=== PATIENT | male | born 1970 | race Caucasian/White ===

== ENCOUNTER 2020-03-20 08:00 | Inpatient (IN) | payer OTHER ==
[~2020-03-20 08:00] MED LIST: Famotidine 20 MG/2 ML SDV IVPUSH SCH; Lactated Ringers 1,000 ML IV SCH; Ropivacaine 49.25 ML, Ketorolac 30 MG, EPINEPHrine 0.5 MG, cloNIDine 80 MCG in Sodium C... INJECT SCH; Scopolamine 1.5 MG Transdermal Patch TRDERM SCH; Tranexamic Acid 1,000 MG in Sodium Chloride 0.9% 100 ML IV ONE; ceFAZolin 2 GM in Premix Bag 1 BAG IV ONE
[2020-03-20] MEDS ORDERED: Acetaminophen 1,000 MG in Premix Bag 1 BAG IV PRN (08:27)
[2020-03-20] MEDS ORDERED: fentaNYL 100 MCG/2 ML SDV IVPUSH PRN (08:27)
[2020-03-20] MEDS ORDERED: Scopolamine 1.5 MG Transdermal Patch ONE (08:40)
[2020-03-20] MEDS ORDERED: Bupivacaine 0.5% 10 ML SDV ONE (08:42)
--- NOTE | 2020-03-20 09:09 | PCM.PREANE ---
Preanesthetic Assessment - Anesthesia/Transfusion/Family Hx Anesthesia History: Prior Anesthesia Without Reaction (hx of colonoscopy, no other anesthetics) Family History of Anesthesia Reaction: No Transfusion History: No Prior Transfusion(s) - Review of Systems General: No Symptoms Pulmonary: No Symptoms Cardiovascular: No Symptoms Gastrointestinal: No Symptoms Neurological: No Symptoms Other: Reports: None - Physical Assessment NPO Status Date: 03/19/20 Height: 5 ft 9 in Weight: 87.09 kg ASA Class: 2 Mental Status: Alert & Oriented x3 Airway Class: Mallampati = 2 Dentition: Reports: Normal Dentition ROM/Head Extension: Full Lungs: Clear to Auscultation, Normal Respiratory Effort Cardiovascular: Regular Rate, Regular Rhythm - Allergies Allergies/Adverse Reactions: Allergies Allergy/AdvReac Type Severity Reaction Status Date / Time No Known Allergies Allergy Verified 03/14/20 13:55 - Blood Blood Available: No - Anesthesia Plan Pre-Op Medication Ordered: None - Acknowledgements Anesthesia Type Planned: Spinal Pt an Appropriate Candidate for the Planned Anesthesia: Yes Alternatives and Risks of Anesthesia Discussed w Pt/Guardian: Yes Pt/Guardian Understands and Agrees with Anesthesia Plan: Yes Additional Comments: anes prob list: htn, last lisinopril 24 hr ago PLAN: spinal with sedation PreAnesthesia Questionnaire HEENT History: Reports: None Cardiovascular History: Reports: Hypertension Respiratory History: Reports: None Gastrointestinal History: Reports: Colon Polyp Genitourinary History: Reports: None Musculoskeletal History: Reports: Fracture, Osteoarthritis Other Musculoskeletal History: hx fx wrist Neurological History: Reports: None Psychiatric History: Reports: Anxiety Endocrine/Metabolic History: Reports: None Hematologic History: Reports: None Immunologic History: Reports: None Oncologic (Cancer) History: Reports: None Dermatologic History: Reports: None - Past Surgical History Head Surgeries/Procedures: Reports: None HEENT Surgical History: Reports: None Cardiovascular Surgical History: Reports: None Respiratory Surgical History: Reports: None GI Surgical History: Reports: Colonoscopy Male Surgical History: Reports: None Endocrine Surgical History: Reports: None Neurological Surgical History: Reports: None Musculoskeletal Surgical History: Reports: None Oncologic Surgical History: Reports: None Dermatological Surgical History: Reports: None - SUBSTANCE USE Tobacco Use Within Last Twelve Months: Other (See Below) Days Per Week of Alcohol Use: 7 Number of Drinks Per Day: 2 Total Drinks Per Week: 14 - HOME MEDS Home Medications: Home Meds Multivitamin [Multivitamins] 1 tab PO DAILY 03/14/20 [History] lisinopriL [Lisinopril] 20 mg PO DAILY 03/14/20 [History] - CURRENT (IN HOUSE) MEDS Current Meds: Current Medications Famotidine (Pepcid) 40 mg IVPUSH ONARRIVE CINDY Fentanyl (Sublimaze) 50 mcg IVPUSH Q5M PRN PRN Reason: Pain Ropivacaine 49.25 ml/Ketorolac Tromethamine 30 mg/Epinephrine HCl 0.5 mg/Clonidine HCl 80 mcg/ Sodium Chloride 75 mls @ 50 mls/sec INJECT ASDIRECTED [facility] Lactated Ringer's (Ringers, Lactated) 1,000 mls @ 100 mls/hr IV ASDIRECTED [facility] Last Admin: 03/20/20 08:40 Dose: 100 mls/hr Documented by: Acetaminophen 1,000 mg/ Premix 100 mls @ 400 mls/hr IV Q6H PRN PRN Reason: Pain Scopolamine (Transderm-Scop) 1.5 mg TRDERM ONARRIVE [facility] Last Admin: 03/20/20 08:50 Dose: 1.5 mg Documented by: Discontinued Medications Bupivacaine HCl (Sensorcaine-Mpf 0.5%) Confirm Administered Dose 10 ml .ROUTE .STK-MED ONE Stop: 03/20/20 08:43 Tranexamic Acid 1,000 mg/ (Sodium Chloride) 110 mls @ 600 mls/hr IV ASDIRECTED ONE Stop: 03/20/20 08:10 Cefazolin Sodium/Dextrose 2 gm (/ Premix) 50 mls @ 100 mls/hr IV ONCALL ONE Stop: 03/20/20 08:29 Scopolamine (Transderm-Scop) Confirm Administered Dose 1.5 mg .ROUTE .STK-MED ONE Stop: 03/20/20 08:41
[2020-03-20] MEDS ORDERED: Ondansetron 4 MG/2 ML SDV ONE (09:22)
[2020-03-20] MEDS ORDERED: Midazolam 1 MG/ML 2 ML SDV ONE (09:22)
[2020-03-20] MEDS ORDERED: Ketorolac 30 MG/ML SDV ONE (09:22)
[2020-03-20] MEDS ORDERED: fentaNYL 100 MCG/2 ML SDV ONE ×2 (09:22→12:15)
[2020-03-20] MEDS ORDERED: Glycopyrrolate 0.2 MG/ML SDV ONE (09:22)
[2020-03-20] MEDS ORDERED: Lidocaine 2% 5 ML SDV ONE (09:22)
[2020-03-20] MEDS ORDERED: Propofol 200 MG/20 ML SDV ONE (09:22)
[2020-03-20] MEDS ORDERED: Sodium Chloride 0.9% 20 ML ONE (09:36)
[2020-03-20] MEDS ORDERED: ceFAZolin 1 GM Vial ONE (09:36)
[2020-03-20] MEDS ORDERED: Phenylephrine 1% 10 MG/ML SDV ONE (09:40)
[2020-03-20] MEDS ORDERED: ePHEDrine 50 MG/ML SDV ONE (10:46)
--- NOTE | 2020-03-20 13:25 | PCM.OPNOTE ---
- General Post-Op/Procedure Note Date of Surgery/Procedure: 03/20/20 Operative Procedure(s): Right total hip arthroplasty with Gonzalez and nephew R3 acetabular cup, cross-link polyethylene liner, Synergy femoral stem, and Oxinium femoral head Findings: Right grade 4 hip osteoarthritis with complete loss of cartilage on the femoral head and acetabulum with bony eburnation Pre Op Diagnosis: Right grade 4 hip osteoarthritis Post-Op Diagnosis: Right grade 4 hip osteoarthritis Anesthesia Technique: General LMA, Spinal Primary Surgeon: Rodrick Ba Sccm Administrator: Allison Madsen Reason Sccm Administrator Was Necessary: Retraction and positioning Pathology: Femoral head to pathology EBL in mLs: 200 Complications: None Free Text/Narrative:: The risks and benefits of total hip arthroplasty were discussed with the patient. The patient was medically optimized for surgery and cleared for surgery. All questions were answered. The patient consented to proceed with surgery. Patient was taken to the operating room after adequate spinal and general anes thesia, he was placed in a left lateral decubitus position with right side up with PEG hip austin system. The right buttock hip and thigh were prepped and draped in usual sterile manner. A curvilinear incision was made centered over the greater trochanter. Skin was incised with a scalpel. Subcutaneous tissue was incised electrocautery. Iliotibial band was identified and split longitudinally between fibers curving into the gluteus mariaa. Retractor was placed. The anterior third of the abductors were taken down subperiosteally and retracted anteriorly. A T capsulotomy was performed with retraction sutures in the anterior and posterior limbs. The femoral head was dislocated and the femoral neck cut made with an oscillating saw. Retractors were placed around the acetabulum. Labrum was excised and the cotyloid fossa cleared of soft tissues. Sequentially reamed from 50 mm to 60 mm until had good bleeding bone. An R3 acetabular component with 3 holes was placed in proper position. 2 screw were then drilled measured and inserted. 2 additional hole covers were placed. A 20 degree build up cross-linked polyethylene acetabular liner was inserted. The right lower extremity was placed in the pocket of the drape. The proximal femur was then prepared with sequential reaming and broaching to size 14. Trial reductions were performed and noted to have good stability with a +836 mm diameter femoral head. The trial components were removed. A Synergy size 14 ingrowth femoral component was then inserted and place. A +8 mm, 36 diameter Oxinium femoral head was applied and tapped into place. The hip was reduced. Good stability was again noted. The capsulotomy was repaired with interrupted [id number] #1 Vicryl sutures. The abductors were repaired back to the gre ater trochanter with [id number] #5 Ethibond suture through bone tunnels. The iliotibial band was repaired with interrupted and running #1 Vicryl suture. Subcutaneous tissue was closed with interrupted 2-0 Vicryl sutures. Skin was closed with running subcuticular Monocryl suture. Sterile dressing was applied and patient was accompanied to recovery in stable condition. Pain management: Toradol, acetaminophen, oxycodone Venous thromboembolism prophylaxis: Aspirin enteric-coated 325 mg tablets once a day for 90 days Prophylactic antibiotics: Ancef for 24 hours Restrictions: Patient is weightbearing as tolerated right lower extremity with assistive device as needed. He has no restrictions. He may resume activities as tolerated.
[2020-03-20] MEDS ORDERED: Sodium Chloride 0.9% 10 ML Syringe FLUSH PRN (13:29)
[2020-03-20] MEDS ORDERED: Ondansetron 4 MG/2 ML SDV IVPUSH PRN (13:29)
[2020-03-20] MEDS ORDERED: diphenhydrAMINE 25 MG Cap PO PRN (13:29)
[2020-03-20] MEDS ORDERED: Docusate Sodium 100 MG Cap PO PRN (13:29)
[2020-03-20] MEDS ORDERED: Morphine 2 MG/ML SYRINGE IVPUSH PRN (13:29)
[2020-03-20] MEDS ORDERED: Aluminum Hydroxide/Magnesium Hydroxide/Simethicone Susp 30 ML Cup PO PRN (13:29)
[2020-03-20] MEDS ORDERED: Bisacodyl 10 MG Supp RECTAL PRN (13:29)
[2020-03-20] MEDS ORDERED: Sodium Chloride 0.9% 2.5 ML Syringe FLUSH PRN (13:29)
[2020-03-20] MEDS ORDERED: Ibuprofen 600 MG Tab PO SCH (13:30)
--- NOTE | 2020-03-20 14:34 | CR ---
INDICATION: Postop total hip arthroplasty TECHNIQUE: Single AP view right hip COMPARISONS: None available. FINDINGS: There is demonstration of a total hip arthroplasty without evidence of immediately malposition hardware. There is no displaced fracture, dislocation or acute osseous abnormality. There is no significant degenerative change. Postoperative changes of the soft tissues are appreciated. IMPRESSION: Expected postoperative changes of the right hip status post total hip arthroplasty. Dictated by Bunny Molina MD @ Mar 20 2020 2:32PM Signed by Dr. Bunny Molina @ Mar 20 2020 2:33PM
[2020-03-20] MEDS: oxyCODONE 5 MG Tab PO PRN ×2 (16:01→20:53)
[2020-03-20] MEDS: Aspirin 325 MG Tab PO SCH (18:41)
[2020-03-20] MEDS: Ketorolac 30 MG/ML SDV IVPUSH SCH (18:42)
[2020-03-20] MEDS: Lisinopril 10 MG Tab PO SCH (18:45)
[2020-03-21] MEDS: Ketorolac 30 MG/ML SDV IVPUSH SCH (00:39)
[2020-03-21] MEDS ORDERED: ceFAZolin 2 GM in Premix Bag 1 BAG IV ONE (08:53)
[2020-03-21] MEDS ORDERED: Polyethylene Glycol 3350 Powder 17 GM Packet PO SCH (09:00)
[2020-03-21] MEDS ORDERED: Famotidine 20 MG Tab PO SCH (09:00)
[2020-03-21] MEDS: oxyCODONE 5 MG Tab PO PRN (09:18)
[2020-03-21] MEDS: Aspirin 325 MG Tab PO SCH (09:54)
[2020-03-21] MEDS: Lisinopril 10 MG Tab PO SCH (10:02)
--- NOTE | 2020-03-21 10:02 | PCM.DCSUM1 ---
Discharge Summary - Hospital Course Free Text/Narrative:: Jose underwent RIGHT TOTAL HIP ARTHROPLASTY March 20, [address] Rodrick Ba. No known surgical complications. Admitted to med/surg for post-op care. POD#1, he was doing well. VSS/afebrile. Hg 11.7 Sitting in chair, finished with breakfast. Denying N/V. Ambulating in room per self with a walker. Dressing CDI. Dressing was removed. Incision CDI, well approximated. Steri- strips intact. No acute drainage or erythema. SCDs utilized post-operatively and last night for DVT prophylaxis. Pain controlled with oral medications. Last dose of oxycodone was last evening at 2000. Will receive dose of Ancef this morning prior to discharge for prophylactic coverage. ASA started last night for DVT prophylaxis. He has a walker at home. He feels ready to be discharged home today, and will call for his [id number] to pick him up. Brief History: Right hip OA - Discharge Data Discharge Date: 03/21/20 Discharge Disposition: Home, Self-Care 01 Condition: Good - Referral to Home Health Primary Care Physician: Luis Manuel Tomas NP - Patient Summary/Data Operative Procedure(s) Performed: Right total hip arthroplasty with Gonzalez and nephew R3 acetabular cup, cross-link polyethylene liner, Synergy femoral stem, and Oxinium femoral head Consults: Consultations 03/20/20 13:29 PT Evaluation and Treatment [CONS] Routine - Patient Instructions Diet: Usual Diet as Tolerated Activity: Apply Ice (Use Polar Care ice often to your hip to minimize swelling and decrease pain. ), Full Weight Bearing (weight bearing as tolerates to right leg, with use of walker), No Strenuous Activities Activity, Other: use walker when ambulating Driving, Other: No driving if taking narcotic medication Showering/Bathing: May Shower, No Tub Bathing/Swimming (No bathtub, hottub or swimming until incision is well healed - usually 4 weeks after surgery) Showering/Bathing, Other: When showering, you do not need to cover AquaCell bandage. Notify Provider of: Fever, Increased Pain, Swelling and Redness, Drainage Other/Special Instructions: You may experience constipation related to the narcotic pain medication. This is a common side effect. Drink plenty of fluids and increase fiber in your diet. If needed, can take Colace 100mg twice daily (available over the counter) along with Miralax 1 capful in 8 oz of liquid daily (or other laxative of your choice). - Discharge Plan Prescriptions/Med Rec: Aspirin 325 mg PO DAILY #90 tablet Ibuprofen 800 mg PO TID #100 tablet oxyCODONE 5 - 10 mg PO Q4H PRN #30 tablet PRN Reason: Pain Home Medications: Home Meds Multivitamin [Multivitamins] 1 tab PO DAILY 03/14/20 [History] lisinopriL [Lisinopril] 20 mg PO DAILY 03/14/20 [History] Aspirin 325 mg PO DAILY #90 tablet 03/21/20 [Rx] Docusate Sodium [Colace] 100 mg PO BID PRN cap 03/21/20 [Rx] Ibuprofen 800 mg PO TID #100 tablet 03/21/20 [Rx] oxyCODONE 5 - 10 mg PO Q4H PRN #30 tablet 03/21/20 [Rx] polyethylene glycoL 3350 [MiraLAX] 17 gm PO DAILY PRN packet 03/21/20 [Rx] Patient Handouts: Oxycodone tablets or capsules, Ibuprofen tablets and capsules, Aspirin, ASA oral tablets, Total Hip Replacement, Anterior, Care A fter, Koyf-da-Wagl Referrals: Allison Madsen, CLINICAL LABORATORY MEDICAL DIRECTOR [Nurse Practitioner] - 04/04/20 10:00 am - Discharge Summary/Plan Comment DC Time >30 min.: Yes Discharge Summary/Plan Comment: Discharged home with [facility] ice machine. Discussed with Jose routine dosing of Ibuprofen, then Tylenol 650mg for mild-moderate or oxycodone for moderate-severe pain as directed. Rxs transmitted for ASA 325mg daily, Ibuprofen 800mg TID and oxycodone. He is borrowing a walker from his [id number], whom will bring the walker with for discharge. Follow up appt has been scheduled for 2 weeks. He was advised to call ortho clinic with acute concerns or questions. Discussed DVT prophylaxis which includes ambulation, daily ASA, and use of compression stockings on am/off hs. A second AquaCell bandage will be sent home with him to change in 1 week. Jose had no additional questions. - General Info Date of Service: 03/21/20 (814) Admission Dx/Problem (Free Text: Right hip pain s/p Right Total Hip Arthroplasty Subjective Update: Jose felt ready to be discharged home. Functional Status: Reports: Pain Controlled (Pain controlled with oxycodone, with last dose prior to HS, and Toradol, which will be switched to Ibuprofen), Tolerating Diet (up in chair. Had breakfast already w/o N/V), Ambulating (up per self in room with use of FWW), Urinating - Review of Systems General: Reports: No Symptoms. Denies: Fever Pulmonary: Denies: Shortness of Breath Cardiovascular: Reports: No Symptoms Gastrointestinal: Denies: Abdominal Pain, Nausea, Vomiting Musculoskeletal: Reports: Joint Pain (post-surgical right hip pain) Neurological: Reports: No Symptoms Psychiatric: Reports: No Symptoms - Patient Data Vitals - Most Recent: Last Vital Signs Temp 36.0 C L 03/21/20 07:43 Pulse 71 03/21/20 07:43 Resp 16 03/21/20 07:43 BP 91/51 L 03/21/20 07:43 Pulse Ox 95 03/21/20 07:43 Weight - Most Recent: 87.09 kg I&O - Last 24 hours: Intake & Output 03/20/20 03/21/20 03/21/20 22:59 06:59 14:59 Intake Total 2000 Output Total 1950 Balance 50 Lab Results - Last 24 hrs: Laboratory Results - last 24 hr 03/21/20 Range/Units 06:00 Hgb 11.7 L (13.0-17.0) g/dL Hct 36.1 L (38.0-50.0) % Med Orders - Current: Current Medications Al Hydroxide/Mg Hydroxide (Mag-Al Plus) 30 ml PO Q4H PRN PRN Reason: Indigestion Aspirin (Aspirin) 325 mg PO DAILY [facility] Last Admin: 03/20/20 18:41 Dose: 325 mg Documented by: Bisacodyl (Dulcolax) 10 mg RECTAL DAILY PRN PRN Reason: Constipation Diphenhydramine HCl (Benadryl) 25 - 50 mg PO Q6H PRN PRN Reason: Itching Docusate Sodium (Colace) 100 mg PO BID PRN PRN Reason: Constipation Famotidine (Pepcid) 40 mg PO DAILY [facility] Ropivacaine 49.25 ml/Ketorolac Tromethamine 30 mg/Epinephrine HCl 0.5 mg/Clonidine HCl 80 mcg/ Sodium Chloride 75 mls @ 50 mls/sec INJECT ASDIRECTED [facility] Lactated Ringer's (Ringers, Lactated) 1,000 mls @ 100 mls/hr IV ASDIRECTED [facility] Last Admin: 03/20/20 08:40 Dose: 100 mls/hr Documented by: Ibuprofen (Motrin) 600 mg PO Q6H CINDY Lisinopril (Prinivil) 20 mg PO DAILY [facility] Last Admin: 03/20/20 18:45 Dose: 20 mg Documented by: Morphine Sulfate (Morphine) 1 - 2 mg IVPUSH Q3H PRN PRN Reason: Pain Ondansetron HCl (Zofran) 4 mg IVPUSH Q6H PRN PRN Reason: Nausea/Vomiting Oxycodone HCl (Oxycodone) 5 - 10 mg PO Q4H PRN PRN Reason: Pain Last Admin: 03/21/20 09:18 Dose: 10 mg Documented by: Polyethylene Glycol (Miralax) 17 gm PO DAILY [facility] Scopolamine (Transderm-Scop) 1.5 mg TRDERM ONARRIVE [facility] Last Admin: 03/20/20 08:50 Dose: 1.5 mg Documented by: Sodium Chloride (Saline Flush) 10 ml FLUSH ASDIRECTED PRN PRN Reason: Keep Vein Open Sodium Chloride (Saline Flush) 2.5 ml FLUSH ASDIRECTED PRN PRN Reason: Keep Vein Open Discontinued Medications Bupivacaine HCl (Sensorcaine-Mpf 0.5%) Confirm Administered Dose 10 ml .ROUTE .STK-MED ONE Stop: 03/20/20 08:43 Cefazolin Sodium (Ancef) Confirm Administered Dose 2 gm .ROUTE .STK-MED ONE Stop: 03/20/20 09:37 Ephedrine Sulfate (Ephedrine Sulfate) Confirm Administered Dose 50 mg .ROUTE .STK-MED ONE Stop: 03/20/20 10:47 Famotidine (Pepcid) 40 mg IVPUSH ONARRIVE [facility] Last Admin: 03/20/20 09:15 Dose: 40 mg Documented by: Fentanyl (Sublimaze) 50 mcg IVPUSH Q5M PRN PRN Reason: Pain Fentanyl (Sublimaze) Confirm Administered Dose 100 mcg .ROUTE .STK-MED ONE Stop: 03/20/20 09:23 Fentanyl (Sublimaze) Confirm Administered Dose 100 mcg .ROUTE .STK-MED ONE Stop: 03/20/20 12:16 Glycopyrrolate (Robinul) Confirm Administered Dose 0.2 mg .ROUTE .STK-MED ONE Stop: 03/20/20 09:23 Tranexamic Acid 1,000 mg/ (Sodium Chloride) 110 mls @ 600 mls/hr IV ASDIRECTED ONE Stop: 03/20/20 08:10 Last Admin: 03/20/20 14:55 Dose: Not Given Documented by: Cefazolin Sodium/Dextrose 2 gm (/ Premix) 50 mls @ 100 mls/hr IV ONCALL ONE Stop: 03/20/20 08:29 Last Admin: 03/20/20 14:55 Dose: Not Given Documented by: Acetaminophen 1,000 mg/ Premix 100 mls @ 400 mls/hr IV Q6H PRN PRN Reason: Pain Last Admin: 03/20/20 14:07 Dose: 400 mls/hr Documented by: Sodium Chloride (Normal Saline) Confirm Administered Dose 20 mls @ as directed .ROUTE .STK-MED ONE Stop: 03/20/20 09:37 Cefazolin Sodium/Dextrose 2 gm (/ Premix) 50 mls @ 100 mls/hr IV ONETIME ONE Stop: 03/21/20 09:22 Last Admin: 03/21/20 09:19 Dose: 100 mls/hr Documented by: Ibuprofen (Motrin) 600 mg PO Q6H [facility] Last Admin: 03/20/20 19:36 Dose: Not Given Documented by: Ketorolac Tromethamine (Toradol) Confirm Administered Dose 30 mg .ROUTE .STK-MED ONE Stop: 03/20/20 09:23 Ketorolac Tromethamine (Toradol) 30 mg IVPUSH Q6H [facility] Stop: 03/21/20 05:00 Last Admin: 03/21/20 00:39 Dose: 30 mg Documented by: Lidocaine (Xylocaine-Mpf 2%) Confirm Administered Dose 5 ml .ROUTE .STK-MED ONE Stop: 03/20/20 09:23 Midazolam HCl (Versed 1 Mg/Ml) Confirm Administered Dose 4 mg .ROUTE .STK-MED ONE Stop: 03/20/20 09:23 Ondansetron HCl (Zofran) Confirm Administered Dose 4 mg .ROUTE .STK-MED ONE Stop: 03/20/20 09:23 Phenylephrine HCl (Danielito-Synephrine) Confirm Administered Dose 10 mg .ROUTE .STK- MED ONE Stop: 03/20/20 09:41 Propofol (Diprivan 20 Ml) Confirm Administered Dose 200 mg .ROUTE .STK-MED ONE Stop: 03/20/20 09:23 Scopolamine (Transderm-Scop) Confirm Administered Dose 1.5 mg .ROUTE .STK-MED ONE Stop: 03/20/20 08:41 Last Admin: 03/20/20 09:22 Dose: Not Given Documented by: Tranexamic Acid (Cyklokapron) Confirm Administered Dose 1,000 mg .ROUTE .STK-MED ONE Stop: 03/20/20 09:38 - Exam Quality Assessment: Reports: DVT Prophylaxis (ASA 325mg started yesterday. SCDs on post-operatively and overnight. Ambulating last evening. ) General: Reports: Alert, Oriented, Cooperative, No Acute Distress HEENT: Reports: Pupils Equal Lungs: Reports: Normal Respiratory Effort Cardiovascular: Reports: Other (Right PP 2+) Extremities: No: Pedal Edema (Compression stockings on bilaterally) Skin: Reports: Warm, Dry Wound/Incisions: Reports: Dressing Dry and Intact (surgical dressing intact to right hip, dry with no shadows of drainage. ), No Drainage. Denies: Erythema (Surgical dresssing removed. Incision well approximated. Steri-strips intact. No erythema. Minimal soft tissue swelling. ) Neurological: Reports: Normal Speech, Normal Tone Psy/Mental Status: Reports: Alert, Normal Affect
[2020-03-21] MEDS ORDERED: Ibuprofen 600 MG Tab PO SCH (11:00)
== END 2020-03-21 10:40 | disposition home or self-care (01) | DRG 470 ==
LOC: MW.SDS 08:00 → EDSTATUS 08:00 → MW.MS 13:29
PROVIDERS: ADMIT Orthopaedic Surgery; ATTEND Orthopaedic Surgery
PROC: 0SR906Z Replacement of Right Hip Joint with Oxidized Zirconium on Polyethylene Synthetic Substitute, Open Approach (ICD-10-PCS; principal; 2020-03-20)
DX: M16.11 Unilateral primary osteoarthritis, right hip (principal); F17.220 Nicotine dependence, chewing tobacco, uncomplicated; Z79.82 Long term (current) use of aspirin; Z79.899 Other long term (current) drug therapy
CPT/HCPCS: 01214; 36415; 73501-26-RT; 73501-RT; 85014; 85018; 86850; 86900; 86901; 88304; 88311; A9270-GY; C1713; C1776; J0131; J0171; J0690; J0735; J1885; J2001; J2250; J2370; J2405; J2704; J2795; J3010; J3490; J7120